=== PATIENT | male | born 1940 | race Caucasian/White ===

== ENCOUNTER 2019-02-25 11:49 | Day surgery (SDC) | payer MEDICARE, BC ==
[2019-02-25] VITALS (9 sets, daily range): BP systolic 108–158; BP diastolic 46–106; PULSE 62–94; TEMP 97.9–98.5
[~2019-02-25] VITALS: Ht 170.2 cm; Wt 80.9 kg
[~2019-02-25 11:49] MED LIST: ALBUTEROL0.83 MG/ML IH; ASPIRIN 32325 MG/TAB PO; COMBIVENT INH14.7 GM IH; HYTRIN 2MG CAPSU2 MG PO; PULMICORT0.25 MG/2 IH; TENORMIN100 MG PO; THEO-DUR 2200 MG/TAB PO; ZITHROMAX Z PA250 MG PO; ZYLOPRIM 300MG300 MG PO
[2019-02-25] MEDS ORDERED: SINGULAIR 110 MG/TAB PO (13:51)
[2019-02-25] MEDS ORDERED: NORVASC 5MG5 MG/TAB PO (13:54)
[2019-02-25] MEDS ORDERED: LIPITOR 80MG80 MG PO (13:55)
[2019-02-25] MEDS ORDERED: FLOMAX 0.40.4 MG/CAP PO (13:57)
[2019-02-25] MEDS ORDERED: BROVANA15 MCG/2 M IH (13:59)
[2019-02-25] MEDS ORDERED: GLUCOPHAGE500 MG/TAB PO (14:02)
[2019-02-25] MEDS ORDERED: PRINIVIL20 MG PO (14:04)
[2019-02-25] MEDS ORDERED: PRIL40 PO (14:05)
[2019-02-25] MEDS ORDERED: MELATONIN EXTRA1 TAB PO (14:06)
[2019-02-25] MEDS ORDERED: DESYREL 50MG50 MG PO (14:09)
[2019-02-25] MEDS ORDERED: ULTRAM 50MG TAB50 MG PO (14:11)
[2019-02-25] MEDS ORDERED: ALBUTEROL (14:14)
[2019-02-25] MEDS ORDERED: CIPRO 500MG TA500 MG PO (14:17)
[2019-02-25] MEDS ORDERED: TYLENOL 500MG500 MG PO (14:20)
[2019-02-25] MEDS ORDERED: ANTI-DIARRHEAL2 MG PO (14:21)
[2019-02-25] MEDS ORDERED: IMODIUM 2MG CAPS2 MG PO (14:26)
[2019-02-25] MEDS ORDERED: ASMANEX TW0.22 MG/A1 (14:33)
[2019-02-25] MEDS ORDERED: NITROSTAT0.4 MG/TAB SL (14:40)
--- NOTE | 2019-02-25 18:44 | NUR ---
PATIENT IN BED. HOB ELEVATED EATING DINNER. HAD BLED FROM CATHETER SITE PREVIOUSLY DURING AMBULATION, STAT LOCK APPLIED. 2 NEW CBI BAGS HUNG AT END OF SHIFT. URINE IS PINK. PATIENT HAS SLIGHT DISCOMFORT BUT DENIES NEED FOR PAIN MEDICATION. WILL CONTINUE TO MONITOR.
--- NOTE | 2019-02-25 20:50 | NUR ---
Patient restless, has removed stat lock from thigh and has bloody drainage on pad and legs. Catheter care provided, new stat lock placed. Irrigated catheter without return of any clots. CBI at moderate rate, peach urine noted. Patient takes HS meds including Trazodone for sleep. SL to right wrist without redness or swelling.
[2019-02-26] VITALS: BP 137/48; PULSE 69; TEMP 98.4
--- NOTE | 2019-02-26 00:22 | NUR ---
Patient remains restless, again stat lock has been pulled off leg and has bloody drainage on thighs and at catheter insertion site. Cath care provided, irrigated without return of any clots. Replaced stat lock. Medicated with Ambien 10mg po now for sleep.
--- NOTE | 2019-02-26 03:45 | NUR ---
HAS BEEN RESTING WELL SINCE FREDERIC. URINE PINK IN TUBING.
[2019-02-26 04:00] VITALS: BP 134/82; PULSE 68; TEMP 98.5
--- NOTE | 2019-02-26 08:11 | NUR ---
Dr Peters here to see patient, see orders. Finn catheter discontinued.
--- NOTE | 2019-02-26 08:15 | NUR ---
Patient alert and oriented, answers questions appropraitely. See assessment. At shift change, CBI infusing at slow rate, tejada catheter patent and draining clear yellow urine. Dr Peters here to see patient and order for prime and pull received. No c/o pain or discomfort.
[2019-02-26 08:54] VITALS: BP 139/47; PULSE 81; TEMP 97.6
--- NOTE | 2019-02-26 09:49 | NUR ---
MAREN met with the patient to discuss a discharge plan. The pt lives alone in [place]. The pt has a cane and walker and reports independence with ADLs. The pt's PCP is Dr. Ibrahim and pt receives medications from [facility] with no difficulties. The pt does not have advanced directives in the EMR but reports they are completed and designate Yolette Velasco . The pt plans to return home upon discharge with Yolette providing transportation. There are no additional needs at this time.
[2019-02-26 12:32] VITALS: BP 156/46; PULSE 95; TEMP 97.7
[2019-02-26 17:04] VITALS: BP 116/42; PULSE 80; TEMP 97.6
--- NOTE | 2019-02-26 18:20 | NUR ---
PATIENT SITTING AT THE EDGE OF BED EATING DINNER. VOIDED 4 OUT OF THE 6 CUPS. URINE APPEARS TO BECOMING SLIGHTLY DARKER. ENCOURAGED MORE PO INTAKE. WILL CONTINUE TO MONITOR. PATIENT STATES HE HAS LITTLE TO NO PAIN. DENIES NEED FOR PAIN MEDICATION. PATIENT AMBULATING IN ROOM AND [place] INDEPENDENTLY WITH WALKER. MINIMAL BLEEDING NOTED TO URETHRA SITE. PATIENT HAS BRIEF ON. NO FURTHER NEEDS AT THIS TIME.
[2019-02-26 19:49] VITALS: BP 135/45; PULSE 86; TEMP 97.8
--- NOTE | 2019-02-26 20:00 | NUR ---
Report received, assumed care for night clerk auditor. Assessment complete. VS stable. States he has tried to void and only had "a few dribbles." Bladder scanned at this time-showing only 86mls. States he does not feel like he has to void-denies pressure, distension or bladder spasms. Pitcher of ice water given-encouraged to increase PO intake. Verbalizes understanding. Will monitor.
[2019-02-27] VITALS: BP 122/58; PULSE 68; TEMP 98
--- NOTE | 2019-02-27 04:00 | NUR ---
Bladder scanned x3 this shift. Did finsih six cup routine at approx 0300. States its easier to void and he feels the urge. Denies pain. Encouraged to call for questions or concerns. Will monitor.
[2019-02-27 04:41] VITALS: BP 103/51; PULSE 65; TEMP 97.4
[2019-02-27 07:54] VITALS: BP 141/50; PULSE 71; TEMP 98
--- NOTE | 2019-02-27 08:00 | NUR ---
UPON ENTRY INTO ROOM PATIENT IS SITTING ON THE EDGE OF THE BED. PATIENT IS A&OX4. VSS. SHALLOW BREATHING NOTED. PATIENT STATES THAT HE FEELS SHORT OF BREATH. UPPER LUNG LOBES CLEAR UPON AUSCULTATION. LUNG BASES DIMINISHED BILATERALLY. PATIENT DENIES A PRODUCTIVE COUGH. BOWEL SOUNDS HYPERACTIVE ALL FOUR QUADRANTS. PATIENT STATES THAT HE HAD AN EPISODE OF DIARRHEA OVERNIGHT. GENERALIZED WEAKNESS NOTED. POSITIVE PEDAL PULSES EQUAL BILATERALLY. 1+ PITTING-EDEMA TO BLE. LEFT FOREARM TO INT. PATIENT 6 CUP ROUTINE COMPLETE. PATIENT DENIES PAIN. NO OTHER NEEDS AT THIS TIME.
--- NOTE | 2019-02-27 10:00 | NUR ---
SARA REPORTED TO THIS NURSE THAT SHE DUMPED THE PATIENT'S 6 CUPS FROM HIS PRIME AND PULL.
[2019-02-27 11:23] VITALS: BP 118/52; PULSE 71; TEMP 97.4
--- NOTE | 2019-02-27 11:32 | NUR ---
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 No needs right now.
--- NOTE | 2019-02-27 16:05 | NUR ---
PATIENT'S LEFT FOREARM INT DISCONTINUED PER PENDING DISCHARGE. TIP INTACT. PATIENT TOLERATED WELL. DISCHARGE INSTRUCTIONS REVIEWED WITH PATIENT AND FAMILY. ALL QUESTIONS ANSWERED. PATIENT PERSONAL BELONGINGS GATHERED. PATIENT TAKEN TO PERSONAL VEHICLE VIA WHEELCHAIR BY SURGICAL STAFF. PATIENT DISCHARGED.
== END 2019-02-27 16:05 | disposition home or self-care (01) ==
LOC: SDCO 11:49 → SURG 16:15 → SDCO 02-27 16:05
DX: N40.1 Benign prostatic hyperplasia with lower urinary tract symptoms (principal); N13.8 Other obstructive and reflux uropathy; I25.10 Atherosclerotic heart disease of native coronary artery without angina pectoris; I10 Essential (primary) hypertension; J44.9 Chronic obstructive pulmonary disease, unspecified; M19.90 Unspecified osteoarthritis, unspecified site; E11.9 Type 2 diabetes mellitus without complications; Z79.84 Long term (current) use of oral hypoglycemic drugs; Z79.82 Long term (current) use of aspirin; Z86.718 Personal history of other venous thrombosis and embolism
CPT/HCPCS: OP; J0690; J2250; J2405; J2704; J3010; J7030